=== PATIENT | female | born 1965 | race Caucasian/White ===

== ENCOUNTER → 2017-06-24 | Outpatient (CLI) | payer OTHER, BC ==
[2017-06-24] MEDS: LIDOCAINE 1% Multi-Dose 20 ML VIAL. ID ×2 (09:20)
[2017-06-24] MEDS: IOHEXOL 300 MG/ML 50 ML VIAL. INT ART ×2 (09:20)
[2017-06-24] MEDS: GADOBUTROL 7.5 MMOL/7.5 ML VIAL INT ART ×2 (09:20)
== END | disposition home or self-care (01) ==
LOC: KCIC 08:12
DX: M25.532 Pain in left wrist (principal)
CPT/HCPCS: 73115; 73222; A9585; Q9967

== ENCOUNTER → 2021-05-29 | Outpatient (CLI) | payer BC, OTHER ==
[2016-02-29 14:09] VITALS: BP 124/67
[~2021-05-29] MED LIST: CYCL5TAB PO; HYDR-3164 PO
--- NOTE | 2021-05-29 13:37 | KCIC ---
EXAMINATION: MRI RIGHT ELBOW WITHOUT IV CONTRAST CLINICAL HISTORY: Right elbow pain. Prior surgery to both medial and lateral side of rt elbow 8-10 yr s ago. Progressing medial pain in recent months, concerning for common flexor tendon origin tear. TECHNIQUE: Multiplanar multisequential images obtained through the elbow without intravenous contrast . COMPARISON: None available FINDINGS: ULNAR COLLATERAL LIGAMENT: Within normal limits. RADIAL COLLATERAL LIGAMENT: Somewhat ill-defined with intermediate signal, suggestive of remote/chron ic injury. COMMON EXTENSOR TENDON: Moderate thickening and intermediate signal with multiple punctate foci of marino sceptibility artifact at the common extensor tendon origin, compatible with postoperative changes in tendinosis. No definite tear. COMMON FLEXOR TENDON: Mild thickening and intermediate signal with multiple punctate foci of suscepti bility artifact at the common flexor tendon origin, compatible with postoperative changes in tendinos is. No definite tear. BICEPS TENDON: Within normal limits. TRICEPS TENDON: Within normal limits. BRACHIALIS TENDON: Within normal limits. ARTICULAR CARTILAGE: No full-thickness chondral defect noted in the ulnohumeral, radiocapitellar, and proximal radioulnar joints. MUSCLES: Muscle bulk and signal intensity within normal limits. BONE/MARROW: No evidence of acute fracture or suspicious marrow replacing process. NERVES: Question mildly increased caliber of the ulnar nerve with fascicular edema proximal to the cu bital tunnel, however, evaluation is limited by oblique course of the nerve in the distal arm and mot ion degraded images. Normal caliber and signal of the ulnar nerve in the forearm. Partially visualize d radial and median nerves unremarkable. JOINT FLUID: No joint effusion or synovitis. IMPRESSION: Postoperative changes and mild to moderate tendinosis in the common extensor and flexor tendon origin s. Questionable changes in the ulnar nerve proximal to the cubital tunnel as described, suboptimally rohit ricardoated. Recommend clinical correlation. Electronically signed by: Justo Mcguire DO (05/29/2021 1:35 PM) [facility]
== END ==
LOC: KCIC MRI 09:53
PROVIDERS: ATTEND Nurse Practitioner
DX: M65.221 Calcific tendinitis, right upper arm (principal); M25.521 Pain in right elbow; Z98.890 Other specified postprocedural states
CPT/HCPCS: 73221